=== PATIENT | female | born 1985 | race American Indian/Alaskan Native ===

== ENCOUNTER 2017-09-17 03:18 | Emergency (ER) | payer MEDICAID ==
[2017-09-17] MEDS ORDERED: TORADOL IM ONE (05:43)
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
[2017-09-17 08:38] VITALS: BP 103/55
== END 2017-09-17 08:53 | disposition home or self-care (01) ==
LOC: ED 03:18
DX: S00.12XA Contusion of left eyelid and periocular area, initial encounter (principal); R51 Headache; Y04.8XXA Assault by other bodily force, initial encounter; Y93.89 Activity, other specified; Y92.89 Other specified places as the place of occurrence of the external cause; Y99.8 Other external cause status
CPT/HCPCS: 70450; 70486; 96372; 99283; J1885